=== PATIENT | male | born 1970 | race Caucasian/White ===

== ENCOUNTER → 2019-04-19 | Outpatient (CLI) | payer BC ==
--- NOTE | 2019-04-19 16:41 | PCVCIMAG ---
APPROVED REPORT Study performed: 04/19/2019 15:55:17 Exam: Stress Echocardiogram Indication: Chest pain, bradycardia, hypertriglyceridemia, palpitations Patient Location: Echo lab Stress Nurse: Stacie Bland RN Status: routine Ht: 5 ft 9 in HR: 63 bpm BP: 110/72 mmHg Rhythm: NSR Procedure The patient underwent an Exercise Stress Test using the Kiko Protocol. Blood pressure, heart rate, and EKG were monitored. An Echocardiogram was performed by tool repair technician in four stages in quad fashion. At peak stress, four selected images were obtained and placed side by side with resting images for comparison. Stress Test Details Stress Test: Exercise stress testing was performed using a Kiko protocol. HR Resting HR: 63 bpmMax Heart Rate (APMHR): 172 bpm Max HR Achieved: 162 bpmTarget HR (85% APMHR): 146 bpm % of APMHR: 94 Recovery HR: 100 bpm HR response to stress: Normal HR response to stress BP Resting BP: 110/72 mmHg Max BP: 166/80 mmHg Recovery BP: 158/74 mmHg BP response to stress: Normal blood pressure response to stress. ECG Resting ECG: Sinus Rhythm Stress ECG: Sinus Rhythm ST Change: Non-ischemic Arrhythmia: None Recovery ECG: Sinus Rhythm Recovery ST Change: Normal Recovery Arrhythmia: None Clinical Reason for Termination: Maximal effort Stress Symptoms: Emesis Exercise duration: 14 min 11 sec Highest Stage Achieved: Stage 5: 5.0 mph at 18% grade. Exercise capacity: 17.5 METs Overall Exercise Capacity for Age: Excellent Scale: Active Angina Score: None Pre-Stress Echo The resting Echocardiogram showed normal left ventricular contractility with an estimated Ejection Fraction of about 55%. The resting echocardiogram demonstrated normal wall motion in all wall segments. Post-Stress Echo The stress Echocardiogram showed normal left ventricular contractility with an estimated Ejection Fraction of about 65%. Compared to rest, there were no stress-induced wall motion abnormalities. Clinical No clinical or ECG evidence for ischemia. Conclusion Clinical Response: Non-ischemic Exercise Capacity: Superior Stress ECG Response: Non-ischemic Stress Echo Images: Non-ischemic The left ventricle is normal in size and wall thickness in both the rest and stress images. Other Information Study Quality: Adequate <Conclusion> The left ventricle is normal in size and wall thickness in both the rest and stress images.
== END | disposition home or self-care (01) ==
LOC: PCVCIMAG 15:56
PROVIDERS: ATTEND Internal Medicine Cardiovascular Disease
DX: R00.1 Bradycardia, unspecified (principal); E78.1 Pure hyperglyceridemia; K21.9 Gastro-esophageal reflux disease without esophagitis
CPT/HCPCS: 93325; 93351